=== PATIENT | female | born 1995 | race Caucasian/White ===

== ENCOUNTER 2018-02-17 14:06 | Inpatient (IN) | payer OTHER ==
[~2018-02-17] VITALS: Ht 152.4 cm; Wt 68.0 kg
[2018-02-17] MEDS ORDERED: NALBUPHINE 10 MG/ML AMP IVP PRN (15:55)
[2018-02-17] MEDS ORDERED: METHYLERGONOVINE 0.2 MG/ML AMP IM PRN (15:55)
[2018-02-17] MEDS ORDERED: PROMETHAZINE 25 MG/ML VIAL IVP PRN (15:55)
[2018-02-17] MEDS ORDERED: CARBOPROST 250 MCG/ML AMP IM PRN (15:55)
[2018-02-17] MEDS ORDERED: OXYTOCIN 10 UNITS/ML VIAL IM SCH (15:55)
[2018-02-17] MEDS ORDERED: OXYTOCIN 20 UNITS in LACTATED RINGERS 1,000 ML IV SCH (16:00)
[2018-02-17] MEDS ORDERED: MISOPROSTOL 25 MCG TAB VG PRN (16:00)
[2018-02-17] MEDS: LACTATED RINGERS 1,000 ML IV SCH (16:14)
[2018-02-17] MEDS ORDERED: AMPICILLIN 2,000 MG in NACL 0.9% 100 ML IV SCH (16:25)
[2018-02-17] MEDS ORDERED: AMPICILLIN 2,000 MG VIAL ONE (16:34)
[2018-02-17 17:26] LABS: BASOPHILS % (AUTO) 0.2 % (0.0-2.0); EOSINOPHILS # (AUTO) 0.1 K/uL (0-0.4); EOSINOPHILS % (AUTO) 0.6 % (0.0-4.0); HEMATOCRIT 33.5 % (36-48); HEMOGLOBIN 11.2 g/dL (12.0-16.0); LYMPHOCYTES # (AUTO) 1.7 K/uL (2.5-16.5); MEAN CORPUSCULAR HEMOGLOBIN 28 pg (27-31); MEAN CORPUSCULAR HGB CONC 34 g/dL (33-37); MEAN CORPUSCULAR VOLUME 84.4 fL (80-94); MONOCYTES # (AUTO) 0.9 K/uL (0.8-1.0); MONOCYTES % (AUTO) 8.8 % (1.7-9.3); NEUTROPHILS # (AUTO) 7.3 K/uL (1.8-7.7); NEUTROPHILS % (AUTO) 73.4 % (42.2-75.2); PLATELET COUNT (AUTO) 240 K/uL (140-450); RED BLOOD CELL COUNT(AUTO) 3.96 MIL/uL (4.20-5.40); RED CELL DISTRIBUTION WIDTH 13.3 % (11.6-13.7)
[2018-02-17 17:26] LABS: APPEARANCE,URINE CLEAR (CLEAR); BILIRUBIN,URINE NEGATIVE (NEGATIVE); BLOOD, URINE NEGATIVE (NEGATIVE); COLOR,URINE YELLOW (YELLOW); LEUKOCYTE ESTERASE ,URINE 2+ (NEGATIVE); NITRITE, URINE NEGATIVE (NEGATIVE); PH,URINE 6.5 (5.0-9.0); UGLUCOSE NEGATIVE (NEGATIVE)
[2018-02-17] MEDS ORDERED: MISOPROSTOL 25 MCG TAB ONE (17:32)
[2018-02-17 17:38] LABS: ALBUMIN 2.6 g/dL (3.4-5.0); ANION GAP 14.8 (8-16); CARBON DIOXIDE 21.9 mmol/L (21-32); CREATININE 0.4 mg/dL (0.6-1.3); POTASSIUM 3.7 mmol/L (3.5-5.1); TOTAL BILIRUBIN 0.3 mg/dL (0.0-1.0)
[2018-02-17] MEDS ORDERED: PREN-546 PO (17:49)
[2018-02-17] MEDS ORDERED: FERR-252 PO (17:49)
[2018-02-17 18:29] LABS: RBC,URINE 3-10 (FEW) /HPF (0-5); WBC,URINE 6-15 (FEW) /HPF (0-5)
[2018-02-17] MEDS: AMPICILLIN 1,000 MG in NACL 0.9% 50 ML IV SCH (21:41)
[2018-02-17] MEDS ORDERED: OXYTOCIN 20 UNITS/LR PREMIX 1,000 ML IV ONE (22:28)
[2018-02-18] MEDS ORDERED: AMPICILLIN 1,000 MG VIAL ONE ×5 (02:11→19:00)
[2018-02-18] MEDS: AMPICILLIN 1,000 MG in NACL 0.9% 50 ML IV SCH ×4 (02:14→18:58)
[2018-02-18] MEDS ORDERED: NALBUPHINE 10 MG/ML AMP ONE (06:57)
[2018-02-18] MEDS ORDERED: PROMETHAZINE 25 MG/ML VIAL ONE (06:58)
--- NOTE | 2018-02-18 08:48 | NUR ---
PATIENT HAS BEEN SCREENED AND CATEGORIZED LOW NUTRITION RISK. PATIENT WILL BE SEEN WITHIN 7 DAYS OF ADMISSION. 02/24/[address]
[2018-02-18] MEDS: LACTATED RINGERS 1,000 ML IV SCH ×3 (09:07→12:11)
[2018-02-18] MEDS ORDERED: ROPIVACAINE 0.2%/NS PREMIX 250 ML EPI ONE ×2 (09:49→18:40)
[2018-02-18] MEDS ORDERED: ROPIVACAINE 0.2%/NS PREMIX 250 ML EPI SCH (10:00)
[2018-02-18 19:43] VITALS: BP 101/58
[2018-02-18] MEDS ORDERED: OXYTOCIN 10 UNITS/ML VIAL ONE (20:18)
[2018-02-18] MEDS ORDERED: oxyCODONE/APAP 5/325 MG 1 TAB TAB PO PRN (20:25)
[2018-02-18] MEDS ORDERED: METHYLERGONOVINE 0.2 MG/ML AMP IM PRN (20:25)
[2018-02-18] MEDS ORDERED: HYDROcodone/APAP 5/325 MG 1 TAB TAB PO PRN (20:25)
[2018-02-18] MEDS ORDERED: MEASLES, MUMPS, AND RUBELLA 1 VIAL SQVAC PRN (20:25)
[2018-02-18] MEDS ORDERED: BENZOCAINE/MENTHOL 20%-0.5% 60 GM CAN TP PRN (20:25)
[2018-02-18] MEDS ORDERED: OXYTOCIN 10 UNITS/ML VIAL IM PRN (20:25)
[2018-02-18] MEDS ORDERED: TEMAZEPAM 15 MG CAP PO PRN (20:25)
[2018-02-18] MEDS ORDERED: DOCUSATE SOD/SENNA 50/8.6 MG 1 TAB PO SCH (21:00)
[2018-02-18] MEDS ORDERED: OXYTOCIN 20 UNITS/LR PREMIX 1,000 ML IV ONE (21:56)
[2018-02-18] MEDS: IBUPROFEN 800 MG TAB PO PRN (23:49)
[2018-02-19] MEDS: IBUPROFEN 800 MG TAB PO PRN ×2 (06:23→19:51)
[2018-02-19 07:48] LABS: HEMATOCRIT 30.9 % (36-48)
[2018-02-20] MEDS: IBUPROFEN 800 MG TAB PO PRN (06:27)
[2018-02-20] MEDS ORDERED: IBUP-2213 PO (10:17)
== END 2018-02-20 16:05 | disposition home or self-care (01) | DRG 560 ==
LOC: MLD 15:23 → MFCC 02-18 23:30
PROVIDERS: ADMIT Obstetrics & Gynecology; ATTEND Obstetrics & Gynecology
PROC: 10E0XZZ Delivery of Products of Conception, External Approach (ICD-10-PCS; principal; 2018-02-18)
PROC: 0KQM0ZZ Repair Perineum Muscle, Open Approach (ICD-10-PCS; 2018-02-18)
PROC: 3E0R3BZ Introduction of Anesthetic Agent into Spinal Canal, Percutaneous Approach (ICD-10-PCS; 2018-02-18)
PROC: 00HU33Z Insertion of Infusion Device into Spinal Canal, Percutaneous Approach (ICD-10-PCS; 2018-02-18)
PROC: 3E0234Z Introduction of Serum, Toxoid and Vaccine into Muscle, Percutaneous Approach (ICD-10-PCS; 2018-02-20)
DX: O99.824 Streptococcus B carrier state complicating childbirth (principal); O89.4 Spinal and epidural anesthesia-induced headache during the puerperium; Z23 Encounter for immunization; O70.1 Second degree perineal laceration during delivery; Z37.0 Single live birth; Z3A.39 39 weeks gestation of pregnancy
CPT/HCPCS: 36415; 51702; 59200; 59409; 80053; 81001; 85018; 85025; 86592; 86886; 86900; 86901; 87086; 90715; J0290; J2300; J2550; J2590; J2795; J7120

== ENCOUNTER 2023-09-17 06:09 | Day surgery (SDC) | payer OTHER ==
[2023-09-16 14:08] LABS: BASOPHILS % (AUTO) 0.5 % (0.0-2.0); EOSINOPHILS # (AUTO) 0.1 K/uL (0-0.4); EOSINOPHILS % (AUTO) 1.6 % (0.0-4.0); HEMATOCRIT 35.3 % (36-48); HEMOGLOBIN 11.9 g/dL (12.0-16.0); LYMPHOCYTES # (AUTO) 1.8 K/uL (2.5-16.5); LYMPHOCYTES % (AUTO) 29.6 % (20.5-51.1); MEAN CORPUSCULAR HEMOGLOBIN 28 pg (27-31); MEAN CORPUSCULAR HGB CONC 34 g/dL (33-37); MEAN CORPUSCULAR VOLUME 82.6 fL (80-94); MONOCYTES # (AUTO) 0.4 K/uL (0.8-1.0); MONOCYTES % (AUTO) 6.6 % (1.7-9.3); NEUTROPHILS # (AUTO) 3.8 K/uL (1.8-7.7); NEUTROPHILS % (AUTO) 61.7 % (42.2-75.2); PLATELET COUNT (AUTO) 226 K/uL (140-450); RED BLOOD CELL COUNT(AUTO) 4.27 MIL/uL (4.20-5.40); RED CELL DISTRIBUTION WIDTH 13.4 % (11.6-13.7); WHITE BLOOD COUNT (AUTO) 6.1 K/uL (4.8-10.8)
[2023-09-16 14:29] LABS: ALBUMIN 3.6 g/dL (3.4-5.0); ANION GAP 9.3 (8-16); CALCIUM 8.6 mg/dL (8.5-10.1); CARBON DIOXIDE 29.6 mmol/L (21-32); CREATININE 0.9 mg/dL (0.6-1.3); POTASSIUM 3.9 mmol/L (3.5-5.1); TOTAL BILIRUBIN 0.2 mg/dL (0.0-1.0); TOTAL PROTEIN, SERUM 6.4 g/dL (6.4-8.2)
[~2023-09-17] VITALS: Ht 154.9 cm; Wt 56.7 kg
[~2023-09-17 06:09] MED LIST: FERR-252 PO; FERR325E14 PO; IBUP-2213 PO; PREN-546 PO; PRETAB PO
[2023-09-17] MEDS ORDERED: LIDOCAINE/EPI 1% 1:100000 20 ML VIAL INJ ONE (07:32)
[2023-09-17] MEDS ORDERED: BUPIVACAINE-MPF 0.25% 30 ML VIAL INJ ONE (07:32)
[2023-09-17] MEDS ORDERED: ceFAZolin 2,000 MG VIAL ONE (07:32)
[2023-09-17] MEDS ORDERED: LIDOCAINE 2% 100 MG/5 ML SYR IVP ONE (09:20)
[2023-09-17] MEDS ORDERED: SEVOFLURANE 250 ML BTL INH ONE (09:20)
[2023-09-17] MEDS ORDERED: MIDAZOLAM 2 MG/2 ML VIAL ONE (09:21)
[2023-09-17] MEDS ORDERED: fentaNYL citrate 0.05 MG/ML VIAL ONE (09:21)
[2023-09-17] MEDS ORDERED: PROPOFOL 200 MG/20 ML VIAL IV ONE (09:21)
[2023-09-17] MEDS ORDERED: ONDANSETRON 4 MG/2 ML VIAL ONE (09:49)
[2023-09-17] MEDS ORDERED: METOCLOPRAMIDE 10 MG/2 ML INJ VIAL ONE (09:49)
[2023-09-17] MEDS ORDERED: DEXAMETHASONE 4 MG/ML VIAL ONE (09:49)
[2023-09-17] MEDS ORDERED: KETOROLAC 30 MG/ML VIAL IVP SCH (10:05)
[2023-09-17] MEDS ORDERED: HYDROmorphone 1 MG/ML AMP IVP PRN (10:25)
[2023-09-17] MEDS ORDERED: ONDANSETRON 4 MG/2 ML VIAL IVP PRN (10:25)
== END 2023-09-17 13:25 | disposition home or self-care (01) ==
LOC: MDS 06:09 → MMU 06:09 → MDS 13:25
PROVIDERS: ATTEND Obstetrics & Gynecology
DX: N92.6 Irregular menstruation, unspecified (principal); N93.9 Abnormal uterine and vaginal bleeding, unspecified; I10 Essential (primary) hypertension; Z79.899 Other long term (current) drug therapy; Z98.890 Other specified postprocedural states
CPT/HCPCS: 36415; 58558; 80053; 85025; 86886; 86900; 86901; J1100; J2001; J2250; J2405; J2704; J2765; J3010; J7030; J3490